=== PATIENT | male | born 1980 | race Caucasian/White ===

== ENCOUNTER 2022-10-30 17:06 | Emergency (ER) | payer SELFPAY ==
--- NOTE | 2022-10-30 17:06 | W.ED.SYNCOPE ---
Documented by User: Jm Bridges MD 11/11/22 01:01 HPI - Syncope General: Chief Complaint: Syncope Stated Complaint: SYNCOPAL EPISODE Time Seen by Provider: 10/30/22 17:06 History of Present Illness: Mr. Ta is a 42-year-old gentleman with history of heavy fentanyl abuse presenting to the emergency department from [facility]. He reports last use approximately 2 days ago. He has just recently been in residential and has had withdrawal symptoms including increased back pain, nausea, vomiting, chest pain, headaches, generalized malaise. He also had a syncopal episode and reports neck pain since that time. Headache preceded the syncopal episode has did some chest discomfort and visual disturbance. Intensity symptoms is moderate to severe. Course has persisted. No other specific changes in health, exacerbating, or alleviating factors identified. Onset (ago): hour(s) Prodromal symptoms: lightheaded, chest pain and other Witnessed: Yes - by Other Context: standing up Associated symptoms: Reports abdominal pain, headache(s), nausea and other Review of Systems General: Reports: 10 or more systems reviewed and unremarkable except in HPI and below GI: Reports: abdominal pain and nausea Neuro: Reports: headache(s) PFSH ED PFSH: Medical History (Updated 11/07/22 @ 00:01 by NATALIA Zepeda) No significant past medical history Surgical History (Updated 10/30/22 @ 17:20 by Jm Bridges MD) History of cholecystectomy Social History (Updated 10/30/22 @ 17:20 by Jm Bridges MD) Substance/Drug Use: former Date of last use: 10/28/22 Physical Exam Const: COMMON NORMALS: alert GENERAL APPEARANCE: cooperative and well developed HENMT: COMMON NORMALS: normocephalic and atraumatic HEAD & SCALP: normocephalic and atraumatic Eye: COMMON NORMALS: conjunctivae normal CONJUNCTIVA: Yes conjunctivae normal SCLERA: sclerae normal Neck/C-Spine: COMMON NORMALS: supple GENERAL: Yes trachea midline Resp: COMMON NORMALS: clear to auscultation bilaterally EFFORT & INSPECTION: Yes able to speak in complete sentences AUSCULTATION: clear to auscultation bilaterally Cardio: COMMON NORMALS: regular rate and regular rhythm RATE: regular rate RHYTHM: regular rhythm GI: COMMON NORMALS: Soft to palpation PALPATION: Yes Soft to palpation and No Tenderness to palpation present (GI) Extremity: GENERAL: Yes normal exam except as noted and No edema Neuro: COMMON NORMALS: moves all extremities SENSORIUM/ORIENTATION: Yes alert and No Orientation impaired Psych: COMMON NORMALS: mental status grossly normal and Normal thought process present THOUGHT PROCESS: Normal thought process present Course Vital Signs: Vital signs: Vital Signs Temperature 98.1 F 10/30/22 17:07 Pulse Rate 89 10/30/22 20:00 Respiratory Rate 16 10/30/22 20:00 Blood Pressure 122/78 10/30/22 20:00 Pulse Oximetry 100 10/30/22 20:00 Oxygen Delivery Me thod 10/30/22 17:15 MDM - Syncope Medical Decision Making 42-year-old gentleman presenting the emergency department for syncopal episode. He also endorses generalized pain specifically worse in the back associated with cessation of opioid abuse in the context of being in residential. Exam as above with no focal neurologic deficits. EKG demonstrates sinus rhythm with right bundle branch block, no STEMI. Laboratory studies and imaging ordered. Patient care handed off to Dr. Gutierrez pending completion of ED evaluation and discharge likely. 42-year-old male checked out to me by the previous physician at shift change. This gentleman is essentially having withdrawal symptoms from fentanyl. He has been without fentanyl for 2 days. His white blood cell count is 12.8, other laboratory is not remarkable. This includes TSH. His troponin is normal. His EKG shows no acute ST wave changes. His urinalysis is negative. Head CT following a syncopal episode is nonacute as is his cervical spine. He repeatedly requests Suboxone or opioids for his withdrawal symptoms, neither of which we prescribe from the ER here. He is informed of this. We will attempt to control his symptoms with some medication. He is otherwise discharged Medical Records I reviewed the patient's medical records. Lab Data I reviewed the patient's lab results. 10/30/22 17:58 10/30/22 17:58 Radiology Impressions Cervical Spine CT 10/30/22 17:51 IMPRESSION: No acute findings. Head CT 10/30/22 17:51 IMPRESSION: No acute intracranial abnormality. Laboratory Results WBC 12.8 10^3/uL (4.0-10.0) H 10/30/22 17:58 RBC 5.14 10^6/uL (4.1-5.3) 10/30/22 17:58 Hgb 15.6 g/dL (11.7-16.6) 10/30/22 17:58 Hct 45.5 % (42.0-52.0) 10/30/22 17:58 MCV 88.5 fl (80-94) 10/30/22 17:58 MCH 30.4 pg (28.0-34.0) 10/30/22 17:58 MCHC 34.3 g/dL (30.0-36.0) 10/30/22 17:58 RDW 12.8 % (12.1-15.1) 10/30/22 17:58 Plt Count 141 10^3/cmm (130-400) 10/30/22 17:58 MPV 12.0 fL (7.4-10.4) H 10/30/22 17:58 Neut % (Auto) 77.5 % 10/30/22 17:58 Lymph % (Auto) 16.4 % 10/30/22 17:58 [place] % (Auto) 5.1 % 10/30/22 17:58 Eos % (Auto) 0.1 % 10/30/22 17:58 Baso % (Auto) 0.5 % 10/30/22 17:58 Neut # (Auto) 9.91 10^3/uL (1.8-7.7) H 10/30/22 17:58 Lymph # (Auto) 2.1 10^3/uL (0.8-4.8) 10/30/22 17:58 [place] # (Auto) 0.7 10^3/uL (0.2-0.9) 10/30/22 17:58 Eos # (Auto) 0.0 10^3/uL (0.0-0.8) 10/30/22 17:58 Baso # (Auto) 0.1 10^3/uL (0.0-0.1) 10/30/22 17:58 Nucleated RBC % (auto) 0 % 10/30/22 17:58 Nucleated RBCs # 0.0 /100WBC 10/30/22 17:58 Sodium 139 mmol/L (136-145) 10/30/22 17:58 Potassium 4.0 mmol/L (3.5-5.1) 10/30/22 17:58 Chloride 104 mmol/L (98-107) 10/30/22 17:58 Carbon Dioxide 24 mmol/L (22-29) 10/30/22 17:58 Anion Gap 15.0 (5-19) 10/30/22 17:58 BUN 11 mg/dL (6-20) 10/30/22 17:58 Creatinine 0.9 mg/dL (0.7-1.2) 10/30/22 17:58 GFR Calculation 92.5 mL/min (90-130) 10/30/22 17:58 Glucose 101 mg/dL (65-115) 10/30/22 17:58 Calculated Osmolality 288 mOsm/kg (285-295) 10/30/22 17:58 Calcium 9.4 mg/dL (8.5-10.5) 10/30/22 17:58 Total Bilirubin 0.5 mg/dL (0.15-1.2) 10/30/22 17:58 AST 47 U/L (0-40) H 10/30/22 17:58 ALT 90 U/L (0-41) H 10/30/22 17:58 Alkaline Phosphatase 97 U/L (40-130) 10/30/22 17:58 Creatine Kinase 78 U/L (39-308) 10/30/22 17:58 Troponin T Baseline 8 ng/L (0-15) 10/30/22 17:58 Troponin T 120 Minute 8.60 ng/L (0-15) 10/30/22 19:18 Delta Troponin T 0.60 ABS# (0-10) 10/30/22 19:18 Total Protein 7.0 g/dL (6.6-8.7) 10/30/22 17:58 Albumin 4.3 g/dL (3.5-5.2) 10/30/22 17:58 Globulin 2.7 g/dL (1.3-4.6) 10/30/22 17:58 TSH 0.32 uIU/mL (0.27-4.20) 10/30/22 17:58 Urine Color Yellow (Yellow) 10/30/22 17:33 Urine Appearance Clear (CLEAR) 10/30/22 17:33 Urine pH 8 (5-7) H 03/03/23 17:33 Ur Specific [place] 1.010 (1.005-1.030) 10/30/22 17:33 Urine Protein Neg (Negative) 10/30/22 17:33 Urine Glucose (UA) Norm (Normal) 10/30/22 17:33 Urine Ketones Negative (Negative) 10/30/22 17:33 Urine Blood Neg (Negative) 10/30/22 17:33 Urine Nitrate Negative (Negative) 10/30/22 17:33 Urine Bilirubin Neg (Negative) 10/30/22 17:33 Prot Sulfosalicylic Acd Negative (Negative) 10/30/22 17:33 Urine Urobilinogen Norm mg/dL (Negative) 10/30/22 17:33 Ur Leukocyte Esterase Negative (Negative) 10/30/22 17:33 Discharge Plan Discharge Patient Disposition: Home Clinical Impression: Syncope, Acute opioid withdrawal Condition: Stable Prescriptions: New ropinirole 1 mg tablet 1 mg PO TID Qty: 14 0RF clonidine HCl 0.2 mg tablet 0.2 mg PO Q8H Qty: 10 0RF Discharge Orders: Discharge ED (Routine); Ordered 10/30/22 Ordered By: Mac Gutierrez Patient Instructions: Syncope (ED), Narcotic Withdrawal (ED) Coding Level of Care Code ED Diesel Technician for Chg Fwd Documented by User: Mac Gutierrez DO 10/31/22 00:47 HPI - Syncope General: Chief Complaint: Syncope Stated Complaint: SYNCOPAL EPISODE Time Seen by Provider: 10/30/22 17:06 PFS ED PFSH: Medical History (Updated 11/07/22 @ 00:01 by NATALIA Zepeda) No significant past medical history Surgical History (Updated 10/30/22 @ 17:20 by Jm Bridges MD) History of cholecystectomy Social History (Updated 10/30/22 @ 17:20 by Jm Bridges MD) Substance/Drug Use: former Date of last use: 10/28/22 Course Vital Signs: Vital signs: Vital Signs Temperature 98.1 F 10/30/22 17:07 Pulse Rate 89 10/30/22 20:00 Respiratory Rate 16 10/30/22 20:00 Blood Pressure 122/78 10/30/22 20:00 Pulse Oximetry 100 10/30/22 20:00 Oxygen Delivery Me thod 10/30/22 17:15 MDM - Syncope Medical Decision Making 42-year-old male checked out to me by the previous physician at shift change. This gentleman is essentially having withdrawal symptoms from fentanyl. He has been without fentanyl for 2 days. His white blood cell count is 12.8, other laboratory is not remarkable. This includes TSH. His troponin is normal. His EKG shows no acute ST wave changes. His urinalysis is negative. Head CT following a syncopal episode is nonacute as is his cervical spine. He repeatedly requests Suboxone or opioids for his withdrawal symptoms, neither of which we prescribe from the ER here. He is informed of this. We will attempt to control his symptoms with some medication. He is otherwise discharged Lab Data 10/30/22 17:58 10/30/22 17:58 Radiology Impressions Cervical Spine CT 10/30/22 17:51 IMPRESSION: No acute findings. Head CT 10/30/22 17:51 IMPRESSION: No acute intracranial abnormality. Laboratory Results WBC 12.8 10^3/uL (4.0-10.0) H 10/30/22 17:58 RBC 5.14 10^6/uL (4.1-5.3) 10/30/22 17:58 Hgb 15.6 g/dL (11.7-16.6) 10/30/22 17:58 Hct 45.5 % (42.0-52.0) 10/30/22 17:58 MCV 88.5 fl (80-94) 10/30/22 17:58 MCH 30.4 pg (28.0-34.0) 10/30/22 17:58 MCHC 34.3 g/dL (30.0-36.0) 10/30/22 17:58 RDW 12.8 % (12.1-15.1) 10/30/22 17:58 Plt Count 141 10^3/cmm (130-400) 10/30/22 17:58 MPV 12.0 fL (7.4-10.4) H 10/30/22 17:58 Neut % (Auto) 77.5 % 10/30/22 17:58 Lymph % (Auto) 16.4 % 10/30/22 17:58 [place] % (Auto) 5.1 % 10/30/22 17:58 Eos % (Auto) 0.1 % 10/30/22 17:58 Baso % (Auto) 0.5 % 10/30/22 17:58 Neut # (Auto) 9.91 10^3/uL (1.8-7.7) H 10/30/22 17:58 Lymph # (Auto) 2.1 10^3/uL (0.8-4.8) 10/30/22 17:58 [place] # (Auto) 0.7 10^3/uL (0.2-0.9) 10/30/22 17:58 Eos # (Auto) 0.0 10^3/uL (0.0-0.8) 10/30/22 17:58 Baso # (Auto) 0.1 10^3/uL (0.0-0.1) 10/30/22 17:58 Nucleated RBC % (auto) 0 % 10/30/22 17:58 Nucleated RBCs # 0.0 /100WBC 10/30/22 17:58 Sodium 139 mmol/L (136-145) 10/30/22 17:58 Potassium 4.0 mmol/L (3.5-5.1) 10/30/22 17:58 Chloride 104 mmol/L (98-107) 10/30/22 17:58 Carbon Dioxide 24 mmol/L (22-29) 10/30/22 17:58 Anion Gap 15.0 (5-19) 10/30/22 17:58 BUN 11 mg/dL (6-20) 10/30/22 17:58 Creatinine 0.9 mg/dL (0.7-1.2) 10/30/22 17:58 GFR Calculation 92.5 mL/min (90-130) 10/30/22 17:58 Glucose 101 mg/dL (65-115) 10/30/22 17:58 Calculated Osmolality 288 mOsm/kg (285-295) 10/30/22 17:58 Calcium 9.4 mg/dL (8.5-10.5) 10/30/22 17:58 Total Bilirubin 0.5 mg/dL (0.15-1.2) 10/30/22 17:58 AST 47 U/L (0-40) H 10/30/22 17:58 ALT 90 U/L (0-41) H 10/30/22 17:58 Alkaline Phosphatase 97 U/L (40-130) 10/30/22 17:58 Creatine Kinase 78 U/L (39-308) 10/30/22 17:58 Troponin T Baseline 8 ng/L (0-15) 10/30/22 17:58 Troponin T 120 Minute 8.60 ng/L (0-15) 10/30/22 19:18 Delta Troponin T 0.60 ABS# (0-10) 10/30/22 19:18 Total Protein 7.0 g/dL (6.6-8.7) 10/30/22 17:58 Albumin 4.3 g/dL (3.5-5.2) 10/30/22 17:58 Globulin 2.7 g/dL (1.3-4.6) 10/30/22 17:58 TSH 0.32 uIU/mL (0.27-4.20) 10/30/22 17:58 Urine Color Yellow (Yellow) 10/30/22 17:33 Urine Appearance Clear (CLEAR) 10/30/22 17:33 Urine pH 8 (5-7) H 10/30/22 17:33 Ur Specific [place] 1.010 (1.005-1.030) 10/30/22 17:33 Urine Protein Neg (Negative) 10/30/22 17:33 Urine Glucose (UA) Norm (Normal) 10/30/22 17:33 Urine Ketones Negative (Negative) 10/30/22 17:33 Urine Blood Neg (Negative) 10/30/22 17:33 Urine Nitrate Negative (Negative) 10/30/22 17:33 Urine Bilirubin Neg (Negative) 10/30/22 17:33 Prot Sulfosalicylic Acd Negative (Negative) 10/30/22 17:33 Urine Urobilinogen Norm mg/dL (Negative) 10/30/22 17:33 Ur Leukocyte Esterase Negative (Negative) 10/30/22 17:33 Discharge Plan Discharge Patient Disposition: Home Clinical Impression: Syncope, Acute opioid withdrawal Condition: Stable Prescriptions: New ropinirole 1 mg tablet 1 mg PO TID Qty: 14 0RF clonidine HCl 0.2 mg tablet 0.2 mg PO Q8H Qty: 10 0RF Discharge Orders: Discharge ED (Routine); Ordered 10/30/22 Ordered By: Mac Gutierrez Patient Instructions: Syncope (ED), Narcotic Withdrawal (ED) Coding Level of Care Code ED Diesel Technician for Jordan Juarez
[2022-10-30 17:07] VITALS: BP 118/81; PULSE 80; RESP 12; TEMP 36.7; O2SAT 100; BMI 22.5
[2022-10-30 17:15] VITALS: BP 120/76; PULSE 70; RESP 18; O2SAT 99
--- NOTE | 2022-10-30 17:16 | ECG_ITS ---
[facility] Test Date: 2022-10-30 Pat Name: Tavon Ta Department: Room: Gender: Male Donor Relations Coordinator: : 1980 Requested By: Jm Bridges Order Number: [id number] Melvin MD: Willow Crawley M.D. Measurements Intervals [place] Rate: 72 P: 15 MI: 122 QRS: 82 QRSD: 127 T: 71 QT: 438 QTc: 483 Interpretive Statements SINUS RHYTHM RIGHT BUNDLE BRANCH BLOCK [120+ ms QRS DURATION, UPRIGHT V1, 40+ ms S IN I/aVL/V4/V5/V6] No previous ECG available for comparison Electronically Signed On 10-30-2022 21:47:15 MYCOLOGY TEACHER by Willow Crawley M.D. [id number]
[2022-10-30 17:35] VITALS: BP 120/76
[2022-10-30] MEDS: cloNIDine 0.1 mg Tablet PO (17:35)
[2022-10-30] MEDS: sodium chloride 0.9% 1,000 ML 999 ML IV (17:37)
[2022-10-30 17:39] LABS: Add Urine Microscopic? NO; Charge for UA Resulting for Rev
[2022-10-30] MEDS: acetaminophen 1,000 MG/100 ML PIGGYBACK 400 MG IV (17:41)
--- NOTE | 2022-10-30 17:51 | CTR_ITS ---
PROCEDURE INFORMATION: Exam: CT Cervical Spine Without Contrast Exam date and time: 10/30/2022 6:27 PM Age: 42 years old Clinical indication: Neck pain; Additional info: Syncope, neck pain TECHNIQUE: Imaging protocol: Computed tomography of the cervical spine without contrast. Radiation optimization: All CT scans at this facility use at least one of these dose optimization techniques: automated exposure control; mA and/or kV adjustment per patient size (includes targeted exams where dose is matched to clinical indication); or iterative reconstruction. REPORTING DATA: Count of CT and Cardiac NM exams in prior 12 months: This patient has received [address] and 0 known cardiac nuclear medicine studies in the 12 months prior to the current study. COMPARISON: No relevant prior studies available. RADIATION DOSE METRICS: Total DLP (mGy-cm): 236.5 FINDINGS: Bones/joints: No acute fracture. Normal alignment. C2-C3: No significant disc bulge or herniation. No severe spinal canal stenosis. No significant neural foraminal narrowing. C3-C4: No significant disc bulge or herniation. No severe spinal canal stenosis. No significant neural foraminal narrowing. C4-C5: No significant disc bulge or herniation. No severe spinal canal stenosis. No significant neural foraminal narrowing. C5-C6: No significant disc bulge or herniation. No severe spinal canal stenosis. No significant neural foraminal narrowing. C6-C7: No significant disc bulge or herniation. No severe spinal canal stenosis. No significant neural foraminal narrowing. C7-T1: No significant disc bulge or herniation. No severe spinal canal stenosis. No significant neural foraminal narrowing. Lungs: Lung apices are normal. Soft tissues: Unremarkable. CT/CT cervical spin wo con* [id number] IMPRESSION: No acute findings.
--- NOTE | 2022-10-30 17:51 | CTR_ITS ---
PROCEDURE INFORMATION: Exam: CT Head Without Contrast Exam date and time: 10/30/2022 6:27 PM Age: 42 years old Clinical indication: Pain; Syncope and collapse; Headache not specified; Additional info: Headache, syncope TECHNIQUE: Imaging protocol: Computed tomography of the head without contrast. Radiation optimization: All CT scans at this facility use at least one of these dose optimization techniques: automated exposure control; mA and/or kV adjustment per patient size (includes targeted exams where dose is matched to clinical indication); or iterative reconstruction. REPORTING DATA: Count of CT and Cardiac NM exams in prior 12 months: This patient has received [address] and 0 known cardiac nuclear medicine studies in the 12 months prior to the current study. COMPARISON: No relevant prior studies available. RADIATION DOSE METRICS: Total DLP (mGy-cm): 110.8 FINDINGS: Brain: Normal. No hemorrhage. Unremarkable white matter. No mass effect. Cerebral ventricles: No ventriculomegaly. Paranasal sinuses: Visualized sinuses are unremarkable. No fluid levels. Mastoid air cells: Visualized mastoid air cells are well aerated. Bones/joints: Unremarkable. No acute fracture. Soft tissues: Unremarkable. CT/CT head wo con* [id number] IMPRESSION: No acute intracranial abnormality.
[2022-10-30 18:15] LABS: Bilirubin Urine Neg (Negative); Blood Urine Neg (Negative); Glucose Urine UA Norm (Normal); Ketones Urine Negative (Negative); Nitrate Urine Negative (Negative); Protein Urine Neg (Negative); Urine Appearance Clear (CLEAR); Urine Color Yellow (Yellow); pH Urine 8 (5-7)
[2022-10-30 18:16] LABS: Leukocyte Esterase Urine Negative (Negative); Sulfosalicylic Acid Urine Negative (Negative); Urobilinogen Urine Norm (Negative)
[2022-10-30 18:17] LABS: Basophils # 0.1 10^3/uL (0.0-0.1); Basophils % 0.5 %; Eosinophils % 0.1 %; Hematocrit 45.5 % (42.0-52.0); Hemoglobin 15.6 g/dL (11.7-16.6); Lymphocytes # 2.1 10^3/uL (0.8-4.8); Lymphocytes % 16.4 %; Mean Corpuscular HGB Conc 34.3 g/dL (30.0-36.0); Mean Corpuscular Hemoglobin 30.4 pg (28.0-34.0); Mean Corpuscular Volume 88.5 fl (80-94); Monocytes # 0.7 10^3/uL (0.2-0.9); Monocytes % 5.1 %; Neutrophils # 9.91 10^3/uL (1.8-7.7); Neutrophils % 77.5 %; Nucleated Red Blood Cells % 0 %; Platelet Count 141 10^3/cmm (130-400); Red Blood Count 5.14 10^6/uL (4.1-5.3); Red Cell Distribution Width 12.8 % (12.1-15.1); White Blood Count 12.8 10^3/uL (4.0-10.0)
[2022-10-30 18:28] LABS: Troponin(5th) Baseline 8 ng/L (0-15)
[2022-10-30] MEDS: ondansetron 2 mg/ML SDV 2 mL 4 MG IVP (18:55)
[2022-10-30 19:00] VITALS: BP 119/83; PULSE 89; RESP 14; O2SAT 99
--- NOTE | 2022-10-30 19:01 | PC.NURSE ---
[facility]
--- NOTE | 2022-10-30 19:16 | ECG_ITS ---
[facility] Test Date: 2022-10-30 Pat Name: Tavon Ta Department: Room: Gender: Male Ob Scrub Tech: : 1980 Requested By: Jm Bridges Order Number: [id number] Melvin MD: Willow Crawley M.D. Measurements Intervals [place] Rate: 62 P: 20 ID: [id number] QRS: 80 QRSD: 119 T: 70 QT: 471 QTc: 480 Interpretive Statements SINUS RHYTHM RIGHT BUNDLE BRANCH BLOCK [120+ ms QRS DURATION, UPRIGHT V1, 40+ ms S IN I/aVL/V4/V5/V6] Compared to ECG 10/30/2022 17:28:03 No significant changes Electronically Signed On 10-30-2022 22:01:15 HISTORIC INTERPRETER by Willow Crawley M.D. [id number]
[2022-10-30 19:22] LABS: Alanine Aminotransferase 90 U/L (0-41); Albumin Level 4.3 g/dL (3.5-5.2); Alkaline Phosphatase 97 U/L (40-130); Aspartate Amino Transferase 47 U/L (0-40); Blood Urea Nitrogen 11 mg/dL (6-20); Calcium 9.4 mg/dL (8.5-10.5); Carbon Dioxide 24 mmol/L (22-29); Chloride 104 mmol/L (98-107); Creatine Phosphokinase 78 U/L (39-308); Globulin 2.7 g/dL (1.3-4.6); Glomerular Filtration Rate 92.5 mL/min (90-130); Glucose 101 mg/dL (65-115); Osmolality Calculated 288 mOsm/kg (285-295); Sodium 139 mmol/L (136-145); Thyroid Stimulating Hormone 0.32 uIU/mL (0.27-4.20); Total Bilirubin 0.5 mg/dL (0.15-1.2)
[2022-10-30] MEDS: ropinirole 1 mg Tablet PO (19:52)
[2022-10-30 20:00] VITALS: BP 122/78; PULSE 89; RESP 16; O2SAT 100
--- NOTE | 2022-11-05 14:23 | DCPLANNER ---
Addendum entered by Kyra Bonilla 11/05/22 14:24: credit collections manager called patient due to no primary care physician. credit collections manager called phone number [phone], number is not accepting calls at this time. Original Note: 11.04.22 - TCM called patient due to no primary care physician - no answer at this time.
== END 2022-10-30 19:57 | disposition home or self-care (01) ==
PROVIDERS: Emergency Medicine; Emergency Provider Emergency Medicine
DX: R55 Syncope and collapse (principal); F11.23 Opioid dependence with withdrawal
CPT/HCPCS: 36415; 70450; 72125; 80053; 81003; 82550; 84443; 84484; 85025; 93005; 96365; 96375; 99285; J0131; J2405; J7030